=== PATIENT | male | born 1985 | race Caucasian/White ===

== ENCOUNTER 2016-04-03 16:20 | Emergency (ER) | payer OTHER ==
[2016-04-03] MEDS ORDERED: ASPIRIN CHEW 81 MG TABLET PO STA (16:58)
[2016-04-03] MEDS ORDERED: ASPIRIN CHEW 81 MG TABLET ONE (17:11)
== END 2016-04-03 21:31 | disposition home or self-care (01) ==
DX: R07.9 Chest pain, unspecified (principal); Z82.49 Family history of ischemic heart disease and other diseases of the circulatory system; F17.200 Nicotine dependence, unspecified, uncomplicated
CPT/HCPCS: 36415; 71020; 80053; 83690; 83880; 84484; 85025; 85379; 93005; 93010; 99284; 99285; A9270

== ENCOUNTER 2016-07-27 20:32 | Emergency (ER) | payer OTHER | END 2016-07-27 22:28 | disposition home or self-care (01) | DX: S21.211A Laceration without foreign body of right back wall of thorax without penetration into thoracic cavity, initial encounter (principal); W26.8XXA Contact with other sharp object(s), not elsewhere classified, initial encounter; F17.200 Nicotine dependence, unspecified, uncomplicated ==